=== PATIENT | female | born 1980 | race American Indian/Alaskan Native ===

== ENCOUNTER 2017-02-20 10:15 | Outpatient (CLI) | payer MEDICARE ==
--- NOTE | 2017-02-20 12:21 | Mammography Report ---
BONE DENSITY STUDY: Evaluation for adverse medication response. DEFINITIONS: BMD = Bone Mineral Density T-score = BMD related to mean peak bone mass of young adult (mean expressed in Standard Deviation) Z-score = Age matched BMD expressed in SD World Health Organization (WHO) Diagnostic Criteria Normal T-score > -1 SD Osteopenia T-score between -1 and -2.4 SD Osteoporosis T-score -2.5 SD or below FINDINGS: The weighted average BMD of lumbar spine L1-L4 is 1.251 with a T-score of 1.9. The weighted average BMD of the left hip is 0.987 with a T-score of 0.4. IMPRESSION: The patient's average T-score is diagnostic for normal bone density and low relative risk for fracture. NOTE: BMD is not the only risk factor for fracture; also consider factors such as the patient's age, risk of falling, previous osteoporotic fracture, family history of osteoporotic fractures, current smoker, and low body weight. Queen's triangle is a region of interest in femur, predominantly of trabecular bone. It is not a true anatomic site, and [facility] does not recommend its use clinically.
== END 2017-02-20 10:16 | disposition home or self-care (01) ==
LOC: MAMMO 10:15
PROVIDERS: ATTEND Obstetrics & Gynecology Gynecology
DX: M81.8 Other osteoporosis without current pathological fracture (principal); T50.905A Adverse effect of unspecified drugs, medicaments and biological substances, initial encounter
CPT/HCPCS: 77080

== ENCOUNTER 2018-07-09 09:49 | Day surgery (SDC) | payer MEDICARE ==
[2018-07-09 10:27] LABS: Albumin 4.3 g/dL (3.9-5); Calcium 9.8 mg/dL (8.4-10.2)
--- NOTE | 2018-07-09 10:29 | Short Stay Summary ---
Short Stay Documentation Date of service: 07/09/18 Narrative H&P: 38 year old female with LUE dialysis access with gangrene of the 2nd digit, RUE with gangrene of the 2nd digit, and left heel ulcer. No extremities have palpable pulses. - History Principal diagnosis: PVD with gangrene H&P: obtained from office - Allergies and Medications Current Medications: Allergies apple Allergy (Verified 07/25/14 14:51) Swelling heparin Allergy (Verified 07/25/14 12:46) Unknown hydrogen peroxide Allergy (Verified 07/25/14 12:46) Itching levofloxacin [From Levaquin] Allergy (Verified 07/25/14 12:46) Unknown Sulfa (Sulfonamide Antibiotics) Allergy (Verified 07/25/14 12:46) Swelling Lemus Adverse Reaction (Verified 07/25/14 14:51) Swelling povidone-iodine [From Betadine] Adverse Reaction (Verified 07/25/14 12:46) Rash silver [From Tegaderm AG Mesh] Adverse Reaction (Verified 07/25/14 12:46) Hives soap [From Betadine] Adverse Reaction (Verified 07/25/14 12:46) Rash Home Medications Medication Instructions Recorded Confirmed Last Taken Type Renvela 800 mg PO TID 07/25/14 07/09/18 07/08/18 History 800mg medroxyPROGESTERone ACETATE 10 mg PO DAILY 07/25/14 07/09/18 05/20/18 History 10mg - Physical exam General appearance: no acute distress Lungs: Normal air movement Gastrointestinal: normal Extremities: normal temperature, normal color - Brief post op/procedure progress note Date of procedure: 07/09/18 Pre-op diagnosis: Atherosclerosis with gangrene of the RUE, LUE, LLE Post-op diagnosis: same Procedure: angiography RUE, LLE, and LUE with revascularization of the LUE Surgeon: ADEEL KILLIAN Estimated blood loss: minimal Condition: stable - Hospital course Hospital course: ACT 250. Will keep sheath in - Disposition Condition at discharge: Stable Disposition: DC-01 TO HOME OR SELFCARE - Discharge Diagnoses (1) Critical ischemia of lower extremity Status: Acute (2) Critical ischemia of upper extremity Status: Acute (3) Atherosclerosis of left lower extremity with gangrene Status: Acute (4) Atherosclerosis of artery of both upper extremities Status: Acute Short Stay Discharge Plan Activity: advance as tolerated Weight Bearing Status: Weight Bear as Tolerated Diet: renal Wound: keep clean and dry, other (avoid heparin for the next 3 dialysis sessions. Remove pressure dressing on 07/10/18 in AM. start taking trental tomorrow and aspirin in 7 days.) Follow up with: NAKIA STUBBS MD [Primary Care Provider] - 7 Days Prescriptions: Aspirin EC [Aspirin Enteric Coated TAB] 81 mg PO QDAY #30 tablet. Pentoxifylline [TRENtal] 400 mg PO DAILY #30 tablet
[2018-07-09] MEDS ORDERED: NACL 0.9% 500 ML 500 ML ONE ×3 (10:37→12:42)
[2018-07-09] MEDS ORDERED: NACL 0.9% 100 ML ONE ×2 (10:37→11:14)
[2018-07-09 10:38] LABS: Basophils # (Auto) 0.1 K/mm3 (0.0-0.1); Eosinophils # (Auto) 0.1 K/mm3 (0.0-0.4)
[2018-07-09 10:47] LABS: INR 1.08 (0.87-1.13)
[2018-07-09 10:48] LABS: Partial Thromboplastin Time 28.6 Sec. (24.2-36.6)
[2018-07-09] MEDS: ANGIOMAX IV ONE ×3 (11:07→12:44)
[2018-07-09] MEDS ORDERED: VERSED ONE (11:11)
[2018-07-09] MEDS ORDERED: ZOFRAN ONE (11:12)
[2018-07-09] MEDS ORDERED: SUBLIMAZE ONE (11:12)
[2018-07-09] MEDS: XYLOCAINE 2% INFILTRATI ONE ×2 (11:17→11:21)
[2018-07-09 11:24] LABS: Hemoglobin 14.7 gm/dl (10.1-14.3); Red Blood Count 5.79 M/mm3 (3.65-5.03)
[2018-07-09 11:25] LABS: Basophils % (Auto) 0.7 % (0.0-1.8); Hematocrit 47.1 % (30.3-42.9); Lymphocytes % (Auto) 26.3 % (13.4-35.0); Mean Corpuscular HGB Conc 31 % (30-34); Mean Corpuscular Volume 81 fl (79-97); Platelet Count 170 K/mm3 (140-440); Red Cell Distribution Width 18.2 % (13.2-15.2)
[2018-07-09 11:26] LABS: Lymphocytes # (Auto) 1.8 K/mm3 (1.2-5.4); Monocytes % (Auto) 9.5 % (0.0-7.3)
[2018-07-09 11:27] LABS: Eosinophils % (Auto) 1.1 % (0.0-4.3); Monocytes # (Auto) 0.1 K/mm3 (0.0-0.8)
[2018-07-09] MEDS ORDERED: NITROGLYCERIN SYRINGE 3 ML ONE (12:44)
--- NOTE | 2018-07-09 16:27 | Operative Report ---
Operative Report Operative Report: EXAM: 1. Ultrasound-guided access of the right common femoral artery. 2. Angiography of the right lower extremity. 3. Selection of the thoracic aorta with thoracic aorta aortography 4. Selection of the left subclavian artery, axillary artery, brachial artery, high takeoff of the radial artery, left common interosseous/ulnar trunk, left interosseous artery, and left ulnar artery with angiography of the left upper extremity 5. Angioplasty of the left distal brachial artery, common interosseous/ulnar ar yemi trunk with a 2.5 mm angioplasty balloon and interosseous artery with a 2 mm angioplasty balloon 6. Selection of the right subclavian artery, axillary artery, brachial artery, high takeoff of the radial artery, and common interosseous/ulnar trunk with angiography of the right upper extremity 7. Selection of the infrarenal abdominal aorta with angiography 8. Selection of the left external iliac artery, left common femoral artery, left superficial femoral artery with angiography of the left lower extremity DATE: 07/09/18 SCHOOL OFFICE ASSISTANT: ADEEL KILLIAN MD INDICATION: Nonhealing ulceration with gangrene of the right and left third digit, and left heel with nonpalpable pedal pulses and radial or ulnar pulses. MEDICATIONS: Please see nursing report for full details. CONTRAST: Please see laborer high density press report for full details PROCEDURE: The risks, benefits, and alternatives were discussed with the patient; written informed consent was obtained. The right groin was prepped and draped in a sterile fashion in the left groin was prepped and draped in a sterile fashion. Ultrasound was used to evaluate the right common femoral artery which was patent. Under direct ultrasound guidance, the right common femoral artery was accessed with a 21-gauge micropuncture needle. 0.018 inch wire was passed into the aorta. Needle was exchanged for transitional dilator. Wire was exchanged for 0.035 inch wire. Transitional dilator was exchanged for a 5 Georgian sheath. Digital subtraction angiography was performed demonstrating an appropriate puncture, above the bifurcation and below the inferior epigastric artery. The right common femoral artery, external iliac artery, profundofemoral artery, and superficial femoral artery, proximally was patent. The thoracic aorta was then selected with a flush catheter and digital subtraction angiography was performed demonstrating patency of the thoracic aorta, right innominate artery, proximal common carotid artery, and subclavian artery. The left proximal common carotid artery and subclavian artery were patent. I used a C2 Cobra glide and selected the left subclavian artery. Digital subtraction angiography was performed. The left axillary artery was selected and digital subtraction angiography was performed. Catheter was exchanged for a long angled catheter. The left high takeoff of the radial artery was selected and digital subtraction angiography was performed left brachial artery was selected and digital subtraction angiography was performed. Digital subtraction angiography demonstrated a patent left subclavian artery, axillary artery, high takeoff (normal variant) of the left radial artery, patency of the upper and midportion of the brachial artery with an occlusion immediately after the fistula takeoff of the left common interosseous/ulnar artery trunk. No further flow was seen distal. The left radial artery supplied the hand but there was minimal flow into the ulnar artery with near occlusion of the underlying vessel. 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 After reviewing the images, I determined the patient would benefit from further intervention and the patient was started on Angiomax half dose. Sheath was exchanged for a 6 Georgian pinnacle destination. 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 Digital subtraction angiography was performed demonstrating some collaterals and subsequent occlusion prior to the ulnar artery and interosseous artery at the proximal portions. I then crossed through the occlusion but the wire perforated the vessel. Blood pressure cuff was inflated for 5 minutes and afterwards deflated. There is no further extravasation. Wire was then passed into the proximal ulnar artery and then into the distal ulnar artery. Catheters advanced over the wire and pullback angiography was performed demonstrating prior complete occlusion of the ulnar artery without distal recanalization except to the arch with residual 99% narrowing throughout the vessels course. I decided the ulnar artery was not a reconstructable vessel. I then selected the interosseous artery and digital subtraction angiography was performed demonstrating flow into the forearm with some distal collateralization to the hand. 2.5 mm angioplasty was used to perform angioplasty of the distal brachial artery, common interosseous/ulnar artery and 2 mm angioplasty was used to perform angioplasty of the proximal interosseous artery. Digital subtraction angiography was used to perform pullback angiography demonstrating patency of this newly reconstructed vessel. I then selected the right subclavian artery with a JR 4 and subsequently selecte d the axillary artery. Digital subtraction angiography was performed demonstrating significant sluggish flow of the artery. 350 g of nitroglycerin was injected and suddenly the flow was much more brisk and there is opacification of the hands. I selected the brachial artery, high takeoff of the radial artery, and common interosseous/ulnar artery trunk. Digital subtraction angiography demonstrated patency of the right subclavian artery, axillary artery, high takeoff of the radial artery which provided dominant flow to the hand, brachial artery, common interosseous/ulnar artery trunk, and interosseous artery. The ulnar artery had diffuse severe disease and was 99% narrowed at certain parts of the vessel without regaining normal size at the wrist. I determined that the ulnar artery was not a reconstructable vessel. I then selected the infrarenal abdominal aorta and digital subtraction angiography was performed. The left external iliac artery was selected, the left common femoral artery was selected, and the left superficial femoral artery was selected. Digital subtraction angiography was performed demonstrating patency of the bilateral common iliac arteries, external iliac arteries, internal iliac arteries, infrarenal abdominal aorta, and left common femoral artery, profundofemoral artery, and superficial femoral artery. The left popliteal artery was patent. The patient's disease was infrapopliteal. The anterior tibial artery was patent to the ankle but there was severe disease within the anterior tibial artery/dorsalis pedis in the foot with limited distribution into the foot. The peroneal artery and tibial peroneal trunk were patent to the ankle and there was heavy collateralization providing flow into the heel and area of the plantar arteries. The posterior tibial artery was occluded from ostium to near the ankle but the reconstituted vessel was diminutive with no significant runoff/outflow and not a viable reconstruction target. At this point, all wires, catheters, and sheaths were retracted to the right external iliac artery and the sheath was exchanged for a 6 Georgian standard sheath. ACT was obtained which was greater than 250 the patient was brought to the Software Recruiter holding area until the ACT was at 150 at which point the sheath was removed and pressure was held until the stasis was achieved. Pressure dressing applied. FINDINGS: Please see procedure note above. IMPRESSION: 1. Successful selection of the bilateral upper extremities and left lower extremity arterial beds as described above with angiography.
[2018-07-09] MEDS ORDERED: TRENTAL PO ONE (16:36)
[2018-07-09 17:48] VITALS: BP 93/46
== END 2018-07-09 17:59 | disposition home or self-care (01) ==
LOC: CATHLABREC 09:49
PROVIDERS: ATTEND Radiology Diagnostic Radiology
DX: I70.244 Atherosclerosis of native arteries of left leg with ulceration of heel and midfoot (principal); I70.208 Unspecified atherosclerosis of native arteries of extremities, other extremity; I70.262 Atherosclerosis of native arteries of extremities with gangrene, left leg; E11.51 Type 2 diabetes mellitus with diabetic peripheral angiopathy without gangrene; I12.0 Hypertensive chronic kidney disease with stage 5 chronic kidney disease or end stage renal disease; E11.22 Type 2 diabetes mellitus with diabetic chronic kidney disease; N18.6 End stage renal disease; E11.40 Type 2 diabetes mellitus with diabetic neuropathy, unspecified; E11.42 Type 2 diabetes mellitus with diabetic polyneuropathy; E78.00 Pure hypercholesterolemia, unspecified; J45.909 Unspecified asthma, uncomplicated; Z99.2 Dependence on renal dialysis; Z83.3 Family history of diabetes mellitus; Z88.2 Allergy status to sulfonamides; Z91.018 Allergy to other foods; Z79.899 Other long term (current) drug therapy; Z79.82 Long term (current) use of aspirin; Z82.49 Family history of ischemic heart disease and other diseases of the circulatory system; Z88.8 Allergy status to other drugs, medicaments and biological substances
CPT/HCPCS: 36415; 37246; 37247; 75716; 76937; 80053; 84132; 85025; 85347; 85610; 85730; 99156; 99157; C1725; C1769; C1887; C1894; J0583; J2250; J2405; J3010; J7040; Q9967

== ENCOUNTER 2018-11-16 09:17 | Outpatient (CLI) | payer MEDICARE ==
--- NOTE | 2018-11-16 14:46 | Vascular Lab Report ---
DUPLEX DOPPLER LOWER EXTREMITY ARTERIAL, BILATERAL INDICATION: Atherosclerosis of [place] arteries of extremities with gangrene,. TECHNIQUE: Arterial duplex examination of both lower extremities performed using B-mode, color flow and spectral Doppler assessment. FINDINGS: RIGHT: Common Femoral Artery: PSV 129 cm/sec. Triphasic waveform. Proximal SFA: PSV 98 cm/sec. Triphasic waveform. Mid SFA: PSV 57 cm/sec. Triphasic waveform. Distal SFA: PSV 36 cm/sec. Triphasic waveform. Popliteal artery: Proximal: PSV 71 cm/s. Triphasic waveform. Distal : PSV 31 cm/sec. Biphasic wavefo rm. Patient has a [id number] amputation. LEFT: Common Femoral Artery: PSV 110 cm/sec. Triphasic waveform. Proximal SFA: PSV 80 cm/sec. Triphasic waveform. Mid SFA: PSV 71 cm/sec. Triphasic waveform. Distal SFA: PSV 76 cm/sec. Biphasic waveform. Popliteal artery: PSV 87 cm/sec. Biphasic waveform. Posterior tibial artery: PSV 0 cm/sec. Appears occluded. Anterior tibial artery: PSV 26 cm/sec. Monophasic waveform. Additional findings: Irregular calcific plaques are noted throughout the bilateral lower extremity ar terial structures. IMPRESSION: Moderate to severe atherosclerotic disease is noted throughout the lower extremities. See above. The left posterior tibial artery appears to be occluded. There is poor flow in the left anterior tibi al artery. Doppler Waveform: * Triphasic is normal. * Biphasic is abnormal if clear transition from triphasic signal along vascular tree. * Monophasic is abnormal. Signer Name: Heron Ramesh Jr, MD Signed: 11/16/2018 2:41 PM Workstation Name: [id number]
--- NOTE | 2018-11-16 14:53 | Vascular Lab Report ---
RIGHT UPPER EXTREMITY ARTERIAL DOPPLER ULTRASOUND HISTORY: Atherosclerosis of automated arteries of right upper extremity with gangrene COMPARISON: None. TECHNIQUE: Abraham-scale, color Doppler and pulse wave Doppler examination of right upper extremity jeremiah taylor was performed. FINDINGS: Vertebral artery: Triphasic waveform. Antegrade flow. PSV 45 cm/s. Subclavian artery: Triphasic waveform. PSV 1 25 cm/s. Axillary artery: Triphasic waveform. PSV 102 cm/s. Brachial artery: Triphasic waveform. PSV 75 cm/s. Radial artery: Triphasic waveform. PSV 46 cm/s. Ulnar artery: Triphasic waveform. PSV 33 cm/s. Additional findings: None. IMPRESSION: Right upper extremity arteries appear patent with no significant arterial occlusive disease. Signer Name: Heron Ramesh Jr, MD Signed: 11/16/2018 2:49 PM Workstation Name: [id number]
== END 2018-11-16 09:18 | disposition home or self-care (01) ==
LOC: VAS 09:17
PROVIDERS: ATTEND Radiology Diagnostic Radiology
DX: I70.268 Atherosclerosis of native arteries of extremities with gangrene, other extremity (principal); N18.6 End stage renal disease; E78.00 Pure hypercholesterolemia, unspecified
CPT/HCPCS: 93925

== ENCOUNTER 2021-01-05 06:50 | Day surgery (SDC) | payer MEDICARE ==
[2021-01-05] MEDS ORDERED: SODIUM CHLORIDE 0.9% 500 ML 500 ML IV SCH (08:00)
[2021-01-05] MEDS ORDERED: SODIUM CHLORIDE 0.9% 500 ML 1,000 ML ONE (08:40)
[2021-01-05] MEDS ORDERED: BIVALIRUDIN 250 MG INJ IV ONE ×3 (08:42→11:15)
[2021-01-05] MEDS ORDERED: SODIUM CHLORIDE 0.9% 100 ML ONE (08:43)
[2021-01-05 08:51] LABS: Mean Corpuscular HGB Conc 31 % (30-34); Mean Corpuscular Volume 78 fl (79-97); Platelet Count 140 K/mm3 (140-440)
[2021-01-05 08:52] LABS: Hematocrit 39.9 % (30.3-42.9); Hemoglobin 12.3 gm/dl (10.1-14.3)
[2021-01-05 09:03] LABS: INR 1.09 (0.87-1.13)
[2021-01-05 09:04] LABS: Blood Urea Nitrogen 16 mg/dL (7-17); Hemolysis Index 10
[2021-01-05 09:05] LABS: Partial Thromboplastin Time 34.4 Sec. (24.2-36.6)
[2021-01-05 09:14] LABS: BUN/Creatinine Ratio 23
[2021-01-05] MEDS ORDERED: methylPREDNISolone Sod Succinate 125 MG/2 ML INJ ONE (09:31)
[2021-01-05] MEDS ORDERED: diphenhydrAMINE 50 MG/ML VIAL ONE (09:31)
[2021-01-05] MEDS ORDERED: FAMOTIDINE 20 MG/2 ML INJ IV ONE ×2 (09:32→10:03)
[2021-01-05] MEDS ORDERED: SODIUM CHLORIDE 0.9% 50 ML ONE (09:38)
[2021-01-05] MEDS ORDERED: diphenhydrAMINE 50 MG/ML VIAL IV ONE (10:00)
[2021-01-05] MEDS ORDERED: methylPREDNISolone Sod Succinate 125 MG/2 ML INJ IV ONE (10:00)
[2021-01-05] MEDS ORDERED: LIDOCAINE 1%/EPINEPHRINE 1:100,000 VIAL (20 ML) INFILTRATI ONE (10:04)
[2021-01-05] MEDS ORDERED: VERAPAMIL 5 MG/2 ML INJ ONE (10:09)
[2021-01-05] MEDS ORDERED: NITROGLYCERIN SYRINGE 3 ML ONE (10:09)
[2021-01-05] MEDS ORDERED: SODIUM CHLORIDE 0.9% 500 ML 500 ML ONE (10:28)
[2021-01-05] MEDS ORDERED: fentaNYL 100 MCG/2 ML INJ ONE (10:46)
[2021-01-05] MEDS ORDERED: MIDAZOLAM 2 MG/2 ML INJ ONE (10:46)
[2021-01-05] MEDS ORDERED: fentaNYL 100 MCG/2 ML INJ IV ONE ×2 (11:23→11:32)
[2021-01-05] MEDS ORDERED: MIDAZOLAM 2 MG/2 ML INJ IV ONE ×2 (11:23→11:32)
[2021-01-05] MEDS ORDERED: NITROGLYCERIN 600 MCG/3 ML SYRINGE UD ONE (11:46)
--- NOTE | 2021-01-05 14:05 | Short Stay Summary ---
Short Stay Documentation Date of service: 01/05/21 Narrative H&P: 40-year-old female with end-stage renal disease status post renal transplant in the right lower quadrant with right third digit gangrene of the tip of the finger. She has a bilateral lower extremity amputee with BKA's. - History Principal diagnosis: Atherosclerosis with gangrene of the right upper extremity H&P: obtained from office - Allergies and Medications Current Medications: Allergies apple Allergy (Verified 07/25/14 14:51) Swelling heparin Allergy (Verified 07/25/14 12:46) Unknown hydrogen peroxide Allergy (Verified 07/25/14 12:46) Itching levofloxacin [From Levaquin] Allergy (Verified 07/25/14 12:46) Unknown Sulfa (Sulfonamide Antibiotics) Allergy (Verified 07/25/14 12:46) Swelling Lemus Adverse Reaction (Verified 07/25/14 14:51) Swelling povidone-iodine [From Betadine] Adverse Reaction (Verified 07/25/14 12:46) Rash silver [From Tegaderm AG Mesh] Adverse Reaction (Verified 07/25/14 12:46) Hives soap [From Betadine] Adverse Reaction (Verified 07/25/14 12:46) Rash Home Medications Medication Instructions Recorded Confirmed Last Taken Type medroxyPROGESTERone ACETATE 10 mg PO DAILY 07/25/14 01/05/21 12/20/20 History 0800 Aspirin EC [Halfprin EC] 81 mg PO QDAY #30 tablet. 07/09/18 01/05/21 01/04/21 Rx 0800 Atorvastatin [Lipitor] 40 mg PO QHS 07/09/18 01/05/21 01/05/21 History 0545 Prednisone [predniSONE (Kathleen) ER 5 mg PO DAILY 07/09/18 01/05/21 01/05/21 05:45 History TAB] 5 MG Pregabalin [Lyrica] 75 mg PO TID 07/09/18 01/05/21 01/05/21 05:45 History 75 MG Protonix TAB 40 mg PO DAILY 07/09/18 01/05/21 01/05/21 History 40 MG Albuterol Sulfate [Proair 90 mcg IH PRN 01/05/21 01/05/21 12/29/20 History Respiclick] Atovaquone [Mepron] 750 mg PO DAILY 01/05/21 01/05/21 01/05/21 History 0545 Cetirizine HCl [ZyrTEC 10mg cap] 10 mg PO DAILY 01/05/21 01/05/21 01/05/21 05:45 History 10 MG Insulin Lispro [Humalog] 100 units SUB-Q TID 01/05/21 01/05/21 01/04/21 History Minocycline (Nf) 100 mg PO BID 01/05/21 01/05/21 01/05/21 History 100 MG Mycophenolate Sodium [Myfortic] 180 mg PO BID 01/05/21 01/05/21 01/05/21 05:45 History 180 MG Semaglutide [Ozempic] 0.25 mg SQ 1XW 01/05/21 01/05/21 01/03/21 History 1000 Tacrolimus [Prograf] 1 mg PO Q12H 01/05/21 01/05/21 01/05/21 05:45 History 1 MG cilostazoL [Pletal] 100 mg PO BID 01/05/21 01/05/21 01/04/21 17:00 History 100 MG Active Medications Sodium Chloride (Nacl 0.9% 500 Ml) 500 mls @ 50 mls/hr IV DIRECT DARIEN - Physical exam General appearance: no acute distress Lungs: Normal air movement Gastrointestinal: normal Extremities: abnormal (Right third digit tip gangrene, bilateral below-knee amputations) - Brief post op/procedure progress note Date of procedure: 01/05/21 Pre-op diagnosis: Atherosclerosis with gangrene of the right upper extremity Post-op diagnosis: same Procedure: 1. Ultrasound-guided access of the left common femoral artery. 2. Angiography of the left lower extremity. 3. Selection of the right innominate artery, right subclavian artery, right axillary artery, right brachial artery, right radial artery, and right ulnar artery with angiography of the right upper extremity. 4. Infusion of 600 mcg of nitroglycerin with repeat angiography of the right upper extremity. Anesthesia: local (With conscious sedation) Surgeon: ADEEL KILLIAN Estimated blood loss: minimal Condition: stable - Hospital course Hospital course: Patient tolerated the procedure well. No immediate postprocedural complications. - Disposition Condition at discharge: Stable Disposition: 01 HOME / SELF CARE / HOMELESS - Discharge Diagnoses (1) Atherosclerosis of extremity with gangrene Status: Acute (2) Anemia in end-stage renal disease Status: Acute (3) Atherosclerosis of artery of both upper extremities Status: Acute Short Stay Discharge Plan Activity: advance as tolerated Weight Bearing Status: Non-Weight Bearing Diet: renal Wound: keep clean and dry Special Instructions: other (Do not lift more than 10 pounds for 1 week, be careful with left groin when applying weight for 1 week.Remove pressure dressing tomorrow morning.) Follow up with: NAKIA STUBBS MD [Primary Care Provider] - 7 Days
--- NOTE | 2021-01-05 14:12 | Operative Report ---
Operative Report Operative Report: EXAM: 1. Ultrasound-guided access of the left common femoral artery. 2. Angiography of the left lower extremity. 3. Selection of the right innominate artery, right subclavian artery, right axillary artery, right brachial artery, right radial artery, and right ulnar artery with angiography of the right upper extremity. 4. Infusion of 600 mcg of nitroglycerin with repeat angiography of the right upper extremity. 5. Selection of the right common carotid artery with angiography. 6. Selection of the left common carotid artery with angiography. DATE: 01/05/2021 CONTROL PANEL OPERATOR: ADEEL KILLIAN MD INDICATION: Gangrene of the right upper extremity third digit MEDICATIONS: Please see nursing report for full details. CONTRAST: Please see veterinarian laboratory animal care report for full details PROCEDURE: The risks, benefits, and alternatives were discussed with the patient; written informed consent was obtained. The bilateral groin was prepped and draped in a sterile fashion. Ultrasound was used to evaluate the left common femoral artery which was patent. Under direct ultrasound guidance, the left common femoral artery was accessed with a 21-gauge micropuncture needle. 0.018 inch wire was passed into the aorta. Needle was exchanged for transitional dilator. Wire was exchanged for 0.035 inch wire. Transitional dilator was exchanged for a 5 Beninese sheath. Digital subtraction angiography was performed demonstrating an appropriate puncture, above the bifurcation and below the inferior epigastric artery. The left common femoral artery, external iliac artery, profundofemoral artery, and superficial femoral artery, proximally was patent. I then selected the right innominate artery, and subclavian artery with a angled catheter with a Glidewire and subsequently selected the axillary artery. Digital subtraction angiography was performed. The right brachial artery was selected and digital subtraction angiography was performed. The right radial artery was selected and digital subtraction angiography was performed. The right ulnar artery was selected and digital subtraction angiography was performed. Catheter was retracted at the brachial artery and nitroglycerin was injected and repeat digital subtraction angiography was performed with recannulation of the right radial artery. After reviewing the images, I then performed pullback angiography of the right subclavian artery, innominate artery, and ended up selecting the right common carotid artery and left common carotid artery and digital subtraction angiography was performed. After reviewing the images, I determined the patient did not require intervention at this time. At this point, all wires, and catheters were retracted to the left external iliac artery and the sheath was removed and pressure was held until the stasis was achieved. Pressure dressing applied. Patient tolerated the procedure well. No immediate postprocedural complications. FINDINGS: Right common carotid artery: Digital subtraction angiography demonstrated patency of the right common carotid artery. Left common carotid artery: Digital subtraction angiography demonstrated patency of the left common carotid artery. Right upper extremity: The right innominate artery was patent. The right subclavian artery was patent. The right axillary artery was patent. There is a high takeoff of the right radial artery. The right brachial artery was patent. The interosseous artery was patent. The ulnar artery was diminutive in size atretic, and provided essentially no circulation to the hand. The radial artery demonstrated patency throughout except for the distal radial artery which had mild irregularity consisting of probably 20 to 30% stenosis. The radial artery was the dominant flow to the hand and provided flow into the palmar arch. The third digit filled from the radial artery. Nitroglycerin infusion provided some mild vasodilatation, but the patient's Raynaud's is well controlled compared to prior angiogram of the right upper extremity. IMPRESSION: 1. Successful selection of the right upper extremity arterial beds with angiography as described above.
[2021-01-05 19:00] VITALS: BP 152/66
== END 2021-01-05 06:51 | disposition home or self-care (01) ==
LOC: CATHLABREC 06:50
PROVIDERS: ATTEND Radiology Diagnostic Radiology
DX: I70.268 Atherosclerosis of native arteries of extremities with gangrene, other extremity (principal); N18.6 End stage renal disease; Z79.82 Long term (current) use of aspirin; Z79.899 Other long term (current) drug therapy; Z79.84 Long term (current) use of oral hypoglycemic drugs; Z88.2 Allergy status to sulfonamides; Z88.1 Allergy status to other antibiotic agents; Z88.8 Allergy status to other drugs, medicaments and biological substances; Z91.018 Allergy to other foods; Z96.653 Presence of artificial knee joint, bilateral; Z94.0 Kidney transplant status; Z98.890 Other specified postprocedural states
CPT/HCPCS: 36223; 36415; 75710; 80048; 85027; 85610; 85730; 99156; C1769; C1887; J0583; J1200; J2250; J2930; J3010; J7040; 75716; Q9967